=== PATIENT | male | born 1955 | race Caucasian/White ===

== ENCOUNTER → 2016-08-25 | Outpatient (CLI) | payer BC ==
[~2016-08-25] MED LIST: AMOX1TAB12 PO
[2016-08-25 15:12] VITALS: BP 150/86
--- NOTE | 2016-08-25 15:12 | Urgent Care T Sheet Gen (E) ---
Intake General Temperature (Fahrenheit): 99.2 Pulse: 91 Blood Pressure Systolic: 150 Blood Pressure Diastolic: 86 Respirations: 20 SPO2: 96 Description of Symptoms patient presents with illness since . Notes sinus congestion, PND, ST, cough and ear pain. Has felt feverish for the past few days but hasn't checked his temp. Been using Afrin nasal spray. History of Present Illness Home Meds Active Scripts Amoxicillin/Clavulanate Potassium (Augmentin 875mg/125mg)1 Each Tablet1 Tab PO BID #14 TAB Ref 0 Prov:JOHN FRANKS 08/25/16 Respiratory Constitutional Symptoms: Fever Malaise EENTM: Ear pain Nose Congestion Throat pain Respiratory: Cough Cardiovascular: No symptoms reported All Other Systems Reviewed Remaining Systems: All other systems reviewed with negative findings Physical Exam Physical Exam General Appearance: WD/WN No apparent distress Eyes, Ears, Nose, Throat Ex: TMs normal (air fluid bubbles bilaterally) Pharyngeal erythema (PND) Other (red, swollen nasal turbinates with purulent drainage) Neck Exam: Supple Lymphadenopathy Respiratory Exam: Lungs clear Normal breath sounds Cardiovascular Exam: Regular rate, rhythm Departure Urgent Care Impression Impression: Primary Impression: Sinusitis Qualified Code: J01.00 - Acute maxillary sinusitis, unspecified Departure Disposition: HOME OR SELF-CARE Condition: Stable Referrals: TOM WILL MD (PCP) Additional Instructions: I have started the patient on Augmentin for treatment DC Afrin Rest. Fluids Return as needed Patient understands DC instructions. All questions were answered. Scripts Amoxicillin/Clavulanate Potassium (Augmentin 875mg/125mg)1 Each Tablet1 Tab PO BID #14 TAB Ref 0 Prov:JOHN FRANKS 08/25/16 End of report . JOHN FRANKS August 25, 2016 10:42
== END ==
LOC: MHUC 10:11
PROVIDERS: ATTEND Physician Assistant
DX: J01.00 Acute maxillary sinusitis, unspecified (principal)
CPT/HCPCS: 99213